=== PATIENT | female | born 2000 | race African-American/Black ===

== ENCOUNTER 2024-11-16 12:58 | Emergency (ER) | payer OTHER ==
[~2024-11-16] VITALS: Ht 170.2 cm; Wt 86.1 kg
[2024-11-16 13:03] VITALS: BP 97/57; PULSE 63; RESP 16; TEMP 36.7; O2SAT 99
== END 2024-11-16 13:59 | disposition home or self-care (01) ==
LOC: ER 12:58
DX: Z11.52 Encounter for screening for COVID-19 (principal); Z20.822 Contact with and (suspected) exposure to COVID-19
CPT/HCPCS: 87426; 99283